=== PATIENT | male | born 1975 | race Caucasian/White ===

== ENCOUNTER 2017-10-20 00:52 | Emergency (ER) | payer OTHER ==
--- NOTE | 2017-10-20 00:54 | ED.ADGEN ---
Past History Past Medical History: Kidney Stones, Migraines Past Surgical History: Other Alcohol Use: None Drug Use: None Adult General Chief Complaint Chief Complaint " I just woke up like this.. 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 Patient did have a flu vaccination this year. Patient is exposed to multiple patient's with influenza, strep and other modalities. She is normally healthy. Patient normally follows Dr. Du. No recent travel. No specific ill contacts then at work. History of immunosuppression. Review of Systems Review of Systems Constitutional: History fever or chills [] Eyes: Denies change in visual acuity, redness, or eye pain [] HENT: History nasal congestion and sore throat [] Respiratory: Hx,. cough Cardiovascular: No additional information not addressed in HPI [] GI: Denies abdominal pain, nausea, vomiting, bloody stools or diarrhea [] : Denies dysuria or hematuria [] Musculoskeletal: Denies back pain or joint pain [] Integument: Denies rash or skin lesions [] Neurologic: Denies headache, focal weakness or sensory changes [] Endocrine: Denies polyuria or polydipsia [] All other systems were reviewed and found to be within normal limits, except as documented in this note. Family History Family History Noncontributory Current Medications Current Medications Current Medications Medications (Trade) Dose Ordered Sig/Saul Start Time Stop Time Status Last Admin Dose Admin Diphenhydramine HCl (Benadryl) 50 mg 1X ONCE 10/20/17 02:00 10/20/17 02:01 DC 10/20/17 03:46 50 MG Hydrocodone Bitartrate/ Ibuprofen (Vicoprofen 7.5-200) 2 tab 1X ONCE 10/20/17 02:00 10/20/17 02:01 DC 10/20/17 03:45 2 TAB Oseltamivir Phosphate (Tamiflu) 75 mg 1X ONCE 10/20/17 02:45 10/20/17 02:46 DC 10/20/17 03:45 75 MG See nursing for home meds Allergies Allergies Allergies Coded Allergies Type Severity Reaction Last Updated Verified prochlorperazine Allergy Unknown 10/10/16 Yes Physical Exam Physical Exam Constitutional: Well developed, well nourished, in moderate distress, non-toxic appearance. [] HENT: Normocephalic, atraumatic, bilateral external ears normal, oropharynx moist, injected pharynx, no oral exudates, nose swollen turbinates and rhinorrhea Eyes: PERRLA, EOMI, conjunctiva normal, no discharge. [] Neck: Normal range of motion, no tenderness, supple, no stridor. [] Cardiovascular: Tachycardia Heart rate regular rhythm, no murmur [] Lungs & Thorax: Bilateral breath sounds equal apex with few scattered wheezes on auscultation [] Abdomen: Bowel sounds normal, soft, no tenderness, no masses, no pulsatile masses. [ Mildly Obese Skin: Warm, dry, no erythema, no rash. [] Back: No tenderness, no CVA tenderness. [] Extremities: No tenderness, no cyanosis, no clubbing, ROM intact, no edema. [] Neurologic: Alert and oriented X 3, normal motor function, normal sensory function, no focal deficits noted. [] Psychologic: Affect normal, judgement normal, mood normal. [] Current Patient Data Lab Results Laboratory Tests Test 10/20/17 01:19 Influenza Type A (Rapid) Negative (NEGATIVE) Influenza Type B (Rapid) Negative (NEGATIVE) Group A Streptococcus Rapid Negative (NEGATIVE) EKG EKG [] Radiology/Procedures Radiology/Procedures [] Course & Med Decision Making Course & Med Decision Making Pertinent Labs and Imaging studies reviewed. (See chart for details) Push fluids. Cool drinks. Follow-up primary care. Take Tylenol and ibuprofen as needed for discomfort. For marked discomfort may take Vicoprofen 4 times a day. No work if has a documented fever. Pt. given option to start Tamiflu 75 bid. [] Final Impression Final Impression 1. Viral syndrome[] Problems: Dragon Disclaimer Dragon Disclaimer This electronic medical record was generated, in whole or in part, using a voice recognition dictation system. GELACIO LACY MD Oct 20, 2017 00:54
[2017-10-20] MEDS ORDERED: HYDR-79 PO (01:24)
[2017-10-20] MEDS ORDERED: ONDA8TAB12 PO (01:24)
[2017-10-20] MEDS ORDERED: diphenhydrAMINE HCL 25 MG CAPSULE PO ONE (02:00)
[2017-10-20] MEDS ORDERED: HYDROcodon/IBUPROFEN 7.5/200MG 1 TAB TABLET PO ONE (02:00)
[2017-10-20 02:19] VITALS: BP 133/70
[2017-10-20] MEDS ORDERED: OSEL75CA PO (02:39)
[2017-10-20] MEDS ORDERED: OSELTAMIVIR 75 MG CAPSULE PO ONE (02:45)
[2017-10-20 03:07] LABS: INFLUENZA A PATIENT NEGATIVE (NEGATIVE); INFLUENZA B PATIENT NEGATIVE (NEGATIVE)
== END 2017-10-20 03:45 | disposition home or self-care (01) ==
LOC: ER 00:52
DX: B34.9 Viral infection, unspecified (principal); Z87.442 Personal history of urinary calculi; G43.909 Migraine, unspecified, not intractable, without status migrainosus
CPT/HCPCS: 87070; 87804; 87880; 99284; Q0163

== ENCOUNTER 2017-12-22 22:33 | Emergency (ER) | payer OTHER ==
[~2017-12-22 22:33] MED LIST: HYDR-79 PO; ONDA8TAB12 PO; OSEL75CA PO
--- NOTE | 2017-12-22 22:56 | PHYS DOC ---
Past History Past Medical History: Hypertension, Kidney Stones, Migraines Past Surgical History: Other Alcohol Use: None Drug Use: None Adult General HPI HPI Patient is a 42-year-old male who presents with complaints of body aches, mild cough, chest discomfort, feeling like he is "getting sick". Patient states she' s been feeling feverish, denies any rashes, vomiting, diarrhea. Patient states he may be feeling mild shortness of breath Review of Systems Review of Systems Constitutional: Subjective fevers HENT: Denies nasal congestion. Mild throat soreness Respiratory: As per history of present illness Cardiovascular: No additional information not addressed in HPI [] GI: Denies abdominal pain, nausea, vomiting, or diarrhea [] Musculoskeletal: Denies back pain or joint pain [] Integument: Denies rash or skin lesions [] Neurologic: Denies headache, focal weakness or sensory changes [] All other systems were reviewed and found to be within normal limits, except as documented in this note. Allergies Allergies Allergies Coded Allergies Type Severity Reaction Last Updated Verified prochlorperazine Allergy Unknown 10/10/16 Yes Physical Exam Physical Exam Constitutional: Well developed, well nourished, no acute distress, non-toxic appearance. [] HENT: Normocephalic, atraumatic, bilateral external ears normal, oropharynx moist with mild erythema, airways patent, no masses, no oral exudates, nose normal. [] Eyes: EOMI, conjunctiva normal, no discharge. [] Neck: Normal range of motion, no tenderness, supple, no stridor. No LAD, no meningeal signs Cardiovascular:Heart rate regular rhythm, no murmur, normal perfusion, equal pulses. Heart rate at time of the examination is 73 Lungs & Thorax: Bilateral breath sounds clear to auscultation, no tachypnea Abdomen: Bowel sounds normal, soft, no distention Skin: Warm, dry, no erythema, no rash. [] Back: Normal range of motion Extremities: No tenderness, no DVT, ROM intact, no edema. [] Neurologic: Alert and oriented X 3, normal motor function, ambulates in the ED with normal gait and without assistance, no focal deficits noted. [] Psychologic: Affect normal, judgement normal, mood normal. [] EKG EKG 2305 sinus rhythm, no STEMI, 79[] Radiology/Procedures Radiology/Procedures [] Course & Med Decision Making Course & Med Decision Making Pertinent Labs and Imaging studies reviewed. (See chart for details) 0041 patient has remained in no distress during the whole ED stay, vital signs have remained unremarkable. Patient is stable for outpatient follow-up. I do not believe that at the time of this ED evaluation the patient is in need for inpatient evaluation or additional testing. My suspicion for significant vascular, infectious, pulmonary, or cardiac etiology to the patient's symptoms is very low. Patient understands the need to follow-up and recheck and reevaluation. Strict return precautions have been discussed with the patient progress to follow up as directed. [] Dragon Disclaimer Dragon Disclaimer This electronic medical record was generated, in whole or in part, using a voice recognition dictation system. Departure Departure: Impression: Primary Impression: Cough Additional Impressions: Body aches Malaise Disposition: HOME, SELF-CARE Condition: STABLE Referrals: PCP,NO (PCP) Please follow with your PCP or at one of the clinics in the list provided to you in 2-4 days for recheck and reevaluation. If your symptoms worsen or new concerning symptoms develop please see your PCP or return to the ED immediately. Patient Instructions: Cough, Adult, Myalgia, Adult Scripts Benzonatate (TESSALON PERLE) 100 Mg Capsule 1 CAP PO TID, #21 CAP Prov: Dg PARKS MD 12/23/17 Problem Qualifiers Dg PARKS MD Dec 22, 2017 22:56
--- NOTE | 2017-12-22 23:28 | RAD ---
PA and lateral chest. HISTORY: Flulike symptoms, labored breathing, fever, cough PA and lateral views of the chest were compared with a study from October 10, 2016. Heart is upper normal in size. Lungs are free of confluent infiltrates. There is not evidence of heart failure. There is no pleural effusion. IMPRESSION: 1. No acute chest disease. Electronically signed by: Dino Christie MD (12/22/2017 11:26 PM) [id number]
[2017-12-22] MEDS ORDERED: BENZONATATE 100 MG CAPSULE. PO ONE (23:30)
[2017-12-22 23:48] LABS: INFLUENZA A PATIENT NEGATIVE (NEGATIVE); INFLUENZA B PATIENT NEGATIVE (NEGATIVE)
[2017-12-22 23:55] LABS: BASO # 0.2 x10^3/uL (0.0-0.2); BASO % 1 % (0-3); EOS # 0.8 x10^3/uL (0.0-0.7); EOS % 5 % (0-3); LYMPH # 2.7 x10^3/uL (1.0-4.8); LYMPH % 17 % (24-48); MEAN CORPUSCULAR HEMOGLOBIN 30 pg (25-35); MEAN CORPUSCULAR HGB CONC 35 g/dL (31-37); MEAN CORPUSCULAR VOLUME 85 fL (79-100); MONO # 1.1 x10^3/uL (0.0-1.1); MONO % 6 % (0-9); NEUT # 11.5 x10^3uL (1.8-7.7); NEUT % 71 % (31-73); PLATELET COUNT 250 x10^3/uL (140-400); RED BLOOD COUNT 5.07 x10^6/uL (4.30-5.70); RED CELL DISTRIBUTION WIDTH 13.7 % (11.5-14.5); WHITE BLOOD COUNT 16.3 x10^3/uL (4.0-11.0)
[2017-12-23 00:06] LABS: CALCIUM 9.1 mg/dL (8.5-10.1); CREATININE 1.2 mg/dL (0.7-1.3); GFR 66.7; POTASSIUM 3.7 mmol/L (3.5-5.1)
--- NOTE | 2017-12-23 00:12 | EKG ---
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
[2017-12-23 00:15] LABS: % BANDS 4 % (0-9); % EOS 5 % (0-5); % LYMPHS 22 % (24-48); % MONOS 6 % (0-10); % SEGS 63 % (35-66); PLT ESTIMATE ADEQUATE (ADEQUATE)
[2017-12-23 00:41] VITALS: BP 109/53
[2017-12-23] MEDS ORDERED: BENZ100C PO (00:45)
== END 2017-12-23 00:55 | disposition home or self-care (01) ==
LOC: ER 22:33
DX: M79.1 Myalgia (principal); R53.81 Other malaise; R05 Cough; R07.89 Other chest pain; R50.9 Fever, unspecified; I10 Essential (primary) hypertension; G43.909 Migraine, unspecified, not intractable, without status migrainosus; Z87.442 Personal history of urinary calculi; Z88.8 Allergy status to other drugs, medicaments and biological substances
CPT/HCPCS: 36415; 71046; 80048; 85007; 85025; 87070; 87804; 87880; 93005; 99285-25

== ENCOUNTER 2020-08-04 13:21 | Emergency (ER) | payer OTHER ==
[~2020-08-04] VITALS: Ht 177.8 cm; Wt 172.0 kg
[~2020-08-04 13:21] MED LIST changes: +BENZ100C PO; +HYDR-1179 PO; -HYDR-79 PO
[2020-08-04 13:42] VITALS: BP 145/107
[2020-08-04] MEDS ORDERED: IV NORMAL SALINE 1,000ML 1,000 ML IV ONE (13:45)
[2020-08-04 14:33] LABS: BASO % 1 % (0-3); EOS % 0 % (0-3); HEMATOCRIT 49.2 % (39.0-53.0); HEMOGLOBIN 16.4 g/dL (13.0-17.5); LYMPH # 2.2 x10^3/uL (1.0-4.8); LYMPH % 30 % (24-48); MEAN CORPUSCULAR HEMOGLOBIN 29 pg (25-35); MEAN CORPUSCULAR HGB CONC 33 g/dL (31-37); MEAN CORPUSCULAR VOLUME 86 fL (79-100); MONO # 0.5 x10^3/uL (0.0-1.1); MONO % 7 % (0-9); NEUT # 4.6 x10^3uL (1.8-7.7); NEUT % 63 % (31-73); PLATELET COUNT 191 x10^3/uL (140-400); RED CELL DISTRIBUTION WIDTH 14.3 % (11.5-14.5); WHITE BLOOD COUNT 7.4 x10^3/uL (4.0-11.0)
[2020-08-04 14:41] LABS: CALCIUM 8.1 mg/dL (8.5-10.1); CREATININE 1.5 mg/dL (0.7-1.3); GFR 50.8; POTASSIUM 3.5 mmol/L (3.5-5.1)
--- NOTE | 2020-08-04 14:42 | RAD ---
CHEST AP ONLY 08/04/2020 2:23 PM INDICATION: Shortness of breath, Covid COMPARISON: 12/22/2017 TECHNIQUE: Portable frontal view of the chest is provided. FINDINGS: Limited evaluation due to technique. The cardiomediastinal silhouette is within normal limits. There may be subtle increased interstitial airspace disease at the right lung base. There are no significant pleural effusions. There is no pulmonary vascular congestion. No pneumothorax. No suspicious osseous abnormality. IMPRESSION: There may be subtle increased interstitial airspace disease the right lung base suggestive of a developing pneumonitis. Short-term follow-up two-view radiograph could be of benefit. Electronically signed by: Gisella Lipscomb MD (08/04/2020 2:38 PM) [id number]
[2020-08-04 14:47] LABS: ALBUMIN 3.7 g/dL (3.4-5.0); ALBUMIN/GLOBULIN RATIO 1.1 (1.0-1.7); TOTAL BILIRUBIN 0.5 mg/dL (0.2-1.0)
--- NOTE | 2020-08-04 14:53 | PHYS DOC ---
Past History Past Medical History: Hypertension Past Surgical History: No Surgical History, Other Additional Past Surgical Histo: lithrotrispy Smoking: Non-smoker Alcohol Use: None Drug Use: None Adult General Chief Complaint Chief Complaint: SHORTNESS OF BREATH HPI HPI Patient is a 45-year-old male who presents for classic COVID-19 symptoms. Patient reports he is on day 7 of symptoms, got Covid tested 5 days ago and was positive. He has been at home on quarantine with his who is also positive. He has been trying to take Tylenol PRN for myalgias without significant relief. Nothing known makes worse. Admits full body pain stating his "muscles hurt". Associated symptoms include mild headache, fatigue, sweats, chills, subjective fever, shortness of breath with non-productive cough, nausea, vomit, diarrhea, and being weak and lightheaded during ambulation without falls. He admits being more nauseas today than preceding few days of illness with x2 bouts of non- bloody non-bilious emesis and x2 episodes diarrhea prompting him to seek care at our ED. Review of Systems Review of Systems Fourteen body systems of review of systems have been reviewed. See HPI for pertinent positives and negative responses, other ramsey all other systems are negative, non-pertinent or non-contributory Current Medications Current Medications Current Medications Medications (Trade) Dose Ordered Sig/Saul Start Time Stop Time Status Last Admin Dose Admin Sodium Chloride 1,000 ml @ 1,000 mls/hr 1X ONCE 08/04/20 13:45 08/04/20 14:44 DC 08/04/20 14:07 1,000 MLS/HR Allergies Allergies Allergies Coded Allergies Type Severity Reaction Last Updated Verified prochlorperazine Allergy Intermediate 08/04/20 Yes Physical Exam Physical Exam Constitutional: Well developed, well nourished, no acute distress, non-toxic appearance. HENT: Normocephalic, atraumatic, bilateral external ears normal, oropharynx moist, no oral exudates, nose normal. Eyes: PERRLA, EOMI, conjunctiva normal, no discharge. Neck: Normal range of motion, no tenderness, supple, no stridor. Cardiovascular: Heart rate regular, sinus rhythm, no murmurs rubs or gallops Lungs & Thorax: Bilateral breath sounds clear to auscultation Abdomen: Bowel sounds normal, soft, no tenderness, no masses, no pulsatile masses. Nonsurgical abdomen, no peritoneal signs Skin: Warm, dry, no erythema, no rash. Back: No tenderness, no CVA tenderness. Extremities: No tenderness, no cyanosis, no clubbing, ROM intact, no edema. Neurologic: Alert and oriented X 3, grossly normal motor & sensory function, no focal deficits noted. Psychologic: Affect normal, judgement normal, mood normal. Current Patient Data Vital Signs Vital Signs Date Time Temp Pulse Resp B/P (MAP) Pulse Ox O2 Delivery O2 Flow Rate FiO2 08/04/20 13:42 98.8 84 22 145/107 (120) 96 Room Air Lab Results Laboratory Tests Test 08/04/20 14:03 White Blood Count 7.4 x10^3/uL (4.0-11.0) Red Blood Count 5.70 x10^6/uL (4.30-5.70) Hemoglobin 16.4 g/dL (13.0-17.5) Hematocrit 49.2 % (39.0-53.0) Mean Corpuscular Volume 86 fL (79-100) Mean Corpuscular Hemoglobin 29 pg (25-35) Mean Corpuscular Hemoglobin Concent 33 g/dL (31-37) Red Cell Distribution Width 14.3 % (11.5-14.5) Platelet Count 191 x10^3/uL (140-400) Neutrophils (%) (Auto) 63 % (31-73) Lymphocytes (%) (Auto) 30 % (24-48) Monocytes (%) (Auto) 7 % (0-9) Eosinophils (%) (Auto) 0 % (0-3) Basophils (%) (Auto) 1 % (0-3) Neutrophils # (Auto) 4.6 x10^3uL (1.8-7.7) Lymphocytes # (Auto) 2.2 x10^3/uL (1.0-4.8) Monocytes # (Auto) 0.5 x10^3/uL (0.0-1.1) Eosinophils # (Auto) 0.0 x10^3/uL (0.0-0.7) Basophils # (Auto) 0.0 x10^3/uL (0.0-0.2) Sodium Level 138 mmol/L (136-145) Potassium Level 3.5 mmol/L (3.5-5.1) Chloride Level 100 mmol/L (98-107) Carbon Dioxide Level 25 mmol/L (21-32) Anion Gap 13 (6-14) Blood Urea Nitrogen 21 mg/dL (8-26) Creatinine 1.5 mg/dL (0.7-1.3) Estimated GFR (Cockcroft-Gault) 50.8 BUN/Creatinine Ratio 14 (6-20) Glucose Level 108 mg/dL (70-99) Lactic Acid Level 1.1 mmol/L (0.4-2.0) Calcium Level 8.1 mg/dL (8.5-10.1) Total Bilirubin 0.5 mg/dL (0.2-1.0) Aspartate Amino Transf (AST/SGOT) 68 U/L (15-37) Alanine Aminotransferase (ALT/SGPT) 75 U/L (16-63) Alkaline Phosphatase 92 U/L (46-116) Troponin I Quantitative 0.116 ng/mL (0-0.055) Total Protein 7.0 g/dL (6.4-8.2) Albumin 3.7 g/dL (3.4-5.0) Albumin/Globulin Ratio 1.1 (1.0-1.7) EKG EKG EKG ordered and interpreted by myself 1515 hrs. initial EKG and accurate due to artifact. What is apparent is prolonged QTC at 499, cannot definitively interpret leads V1 through V3, otherwise patient appears to be in sinus rhythm with a rate of 94 bpm, no axis deviation, no other ischemic findings EKG ordered and interpreted by myself at 1804 hours as sinus rhythm at 82 bpm, unremarkable intervals, no axis deviation, no acute ischemic findings, no STEMI Radiology/Procedures Radiology/Procedures PROCEDURE: CHEST AP ONLY CHEST AP ONLY 08/04/2020 2:23 PM INDICATION: Shortness of breath, Covid COMPARISON: 12/22/2017 TECHNIQUE: Portable frontal view of the chest is provided. FINDINGS: Limited evaluation due to technique. The cardiomediastinal silhouette is within normal limits. There may be subtle increased interstitial airspace disease at the right lung base. There are no significant pleural effusions. There is no pulmonary vascular congestion. No pneumothorax. No suspicious osseous abnormality. IMPRESSION: There may be subtle increased interstitial airspace disease the right lung base suggestive of a developing pneumonitis. Short-term follow-up two-view radiograph could be of benefit. Electronically signed by: Gisella Lipscomb MD (08/04/2020 2:38 PM) [id number] Heart Score HEART Score for Chest Pain: HEART Score for Chest Pain Response (Comments) Value History Slighlty/Non-Suspicious 0 ECG Normal 0 Age < 45 0 Risk Factors 1 or 2 Risk Factors 1 Troponin >3 x Normal Limit 2 Total 3 Risk Factors: Risk Factors: DM, Current or recent (<one month) smoker, HTN, HLP, family history of CAD, obesity. Risk Scores: Risk Factors: DM, Current or recent (<one month) smoker, HTN, HLP, family history of CAD, obesity. Course & Med Decision Making Course & Med Decision Making Pertinent Labs and Imaging studies reviewed. (See chart for details) Discussed most likely diagnosis of COVID-19 with pneumonitis and subsequent Type 2 NSTEMI. Patient responded well to ED intervention but not improved satisfactorily enough to be discharged home. He is still lightheaded and dizzy when changing positions and attempting to ambulate Dr. Hamlin, [facility], was contacted and case discussed. She accepted patient under her care for continued medical management I discussed plan of care with patient and intention for transfer, he was amenable. All questions and concerns addressed prior to ED hold prior to transfer by EMS. Patient still in ED at end of my shift stable and pending transfer, please defer to any amendments on this note if any new medical activity/incidents occur prior to departure. Dragon Disclaimer Dragon Disclaimer This electronic medical record was generated, in whole or in part, using a voice recognition dictation system. Departure Departure: Impression: Primary Impression: COVID-19 Additional Impressions: Pneumonitis HTN (hypertension) Disposition: 02 DC/TRF OTHER SHORT TERM HOS Admitting Physician: Other (DR. HAMLIN) Condition: STABLE Referrals: PCP,NO (PCP) Problem Qualifiers AUGUSTIN CLAROS DO Aug 04, 2020 14:53
[2020-08-04] MEDS ORDERED: DEXAMETHASONE 4 MG TABLET PO ONE (15:45)
[2020-08-04] MEDS ORDERED: ONDANSETRON PF 4 MG/2 ML VIAL. IVP ONE (16:45)
--- NOTE | 2020-08-06 13:24 | EKG ---
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
== END 2020-08-04 18:15 | disposition short-term general hospital (02) ==
LOC: ER 13:21
DX: U07.1 COVID-19 (principal); J18.9 Pneumonia, unspecified organism; I10 Essential (primary) hypertension; R19.7 Diarrhea, unspecified; R53.83 Other fatigue; R42 Dizziness and giddiness; Z88.8 Allergy status to other drugs, medicaments and biological substances
CPT/HCPCS: 36415; 71045; 80053; 83605; 84484; 85025; 87040; 93005; 96361; 96374; 99285; J2405; J7030; J8540